=== PATIENT | male | born 1960 | race Caucasian/White ===

== ENCOUNTER → 2023-12-06 06:29 | Day surgery (SDC) | payer BC, SELFPAY | LOC: GI 06:29 | PROVIDERS: ATTENDING PHYSICIAN Internal Medicine | DX: Z12.11 Encounter for screening for malignant neoplasm of colon (principal); D12.2 Benign neoplasm of ascending colon; K63.89 Other specified diseases of intestine; Z86.010 Personal history of colon polyps | CPT/HCPCS: 45380; 88305 ==